=== PATIENT | female | born 1995 | race African-American/Black ===

== ENCOUNTER 2020-04-11 10:21 | Day surgery (SDC) | payer MEDICARE ==
[~2020-04-11] VITALS: Ht 157.5 cm; Wt 163.6 kg
--- NOTE | ~2020-04-11 | OP ---
PATIENT NAME: NATHAN SPRING MEDICAL RECORD: [id number] :94 LOCATION:[facility] ADMISSION DATE: SURGEON: LINDA RODRIGUEZ MD DATE OF OPERATION: 04/11/2020 PROCEDURE: Colonoscopy with ileoscopy and biopsy. REFERRING PHYSICIAN: Dr. Catarino Farooq. INDICATIONS: Ms. Spring is a very pleasant 24-year-old woman who has had symptoms of abdominal pain, change in bowel habits and hematochezia. She is having soft to loose bowel movement twice a day and approximately a month ago, she began intermittently seeing bright red blood and mucus in her stools along with some generalized abdominal pain. She was evaluated in the [place] [facility] on 03/19/2020, she was diagnosed with a UTI and CT of the abdomen and pelvis was concerned for striated nephrogram in the kidneys, which may relate to pyelonephritis, but no significant perinephric stranding to confirm an infectious process; otherwise negative exam. She presents for outpatient colonoscopy. PREMEDICATIONS: Total IV anesthesia (propofol 600 mg). INSTRUMENT: Olympus video colonoscope, pediatric. PROCEDURE AND FINDINGS: After receiving informed consent, Ms. Spring was placed in left lateral decubitus position, sedated as per anesthesia. After achieving an adequate level of sedation, digital rectal exam was performed that showed no external hemorrhoidal tags, fissures or fistulas, normal sphincter tone, no palpable rectal masses. The colonoscope was introduced per rectally and advanced to the cecum without difficulty. The cecum, IC valve, and appendiceal orifice were identified. The terminal ileum was intubated and the distal small bowel mucosa was without erythema or ulcers. Biopsies were taken from the terminal ileum. As the colonoscope was withdrawn, careful inspection was made of the castro of the colon. Overall, the mucosa had normal vascular and fold pattern. The mucosa of the ascending, transverse, and descending colon was normal. Biopsies were taken from the ascending colon to rule out microscopic colitis. There was liquid stool scattered throughout the colon and it was collected for studies. The mucosa of the distal sigmoid colon and into the rectum had a mild cobblestone appearance with a few scattered small aphthous ulcers. Biopsies were taken from the distal sigmoid colon and rectum. Retroflexion in the rectum showed no significant internal hemorrhoids. Ms. Spring tolerated the procedure well, no immediate complications. Withdrawal time was 11 minutes. ASSESSMENT: 1. Mild ulcerative proctosigmoiditis status post biopsy. 2. Normal terminal ileum, status post biopsy and normal mucosa of the ascending, transverse and descending colon, status post ascending colon biopsies. RECOMMENDATIONS: 1. Follow up histopathology. 2. Avoid nonsteroidal anti-inflammatory drugs. 3. Course of Anusol-HC suppositories 1 per rectum b.i.d. to treat proctitis for 14 days, pending results of histopathology. OPERATIVE REPORT [id number] NATHAN SPRING 4. Tentatively plan colonoscopy in 2 years. TRANSINT:[id number] Voice Confirmation ID: [id number] DOCUMENT ID: [id number] LINDA RODRIGUEZ MD CC: CATARINO FAROOQ MD [id number] DICTATION DATE: 04/11/20 1313 ANIMAL HERDER: 04/11/201916 [facility] 04/11/20 [facility] [address] [place] [address]
[2020-04-11 11:24] LABS: HCG SERUM NEGATIVE (NEGATIVE)
[2020-04-11 11:36] LABS: HEMATOCRIT 41.9 % (36.0-48.0); HEMOGLOBIN 13.5 g/dL (12-16); MCH 30.5 pg (26.0-34.0); MCHC 32.2 g/dL (31.0-37.0); MCV 94.6 fL (80.0-100.0); MEAN PLATELET VOLUME 10.6 fL (7.4-10.4); RBC 4.43 10x6/uL (4.00-5.40); WBC 7.1 10x3/uL (4.8-10.8)
[2020-04-11] MEDS ORDERED: OMEPRAZOLE20 M1 PO (11:37)
[2020-04-11] MEDS ORDERED: ATIVAN0.5 MG PO (11:37)
[2020-04-11] MEDS ORDERED: LEXAPRO20 MG PO (11:38)
[2020-04-11 11:54] VITALS: BP 110/77; Ht 157.5 cm; Wt 163.6 kg
--- NOTE | 2020-04-11 13:35 | NUR ---
1330 UP TO THE BATHROOM. AMBULATORY WITHOUT DIFFICULTY. PASSED FLATUS. BACK TO BED. Aravind BRIONES R.N.
--- NOTE | 2020-04-11 14:23 | NUR ---
1354 IV DC'D. CATHETER TIP INTACT. NO BLEEDING AT SITE. BANDAID APPLIED. REVIEWED DISCHARGE INSTRUCTIONS AND PT VOICES UNDERSTANDING OF INSTRUCTIONS.
== END 2020-04-11 14:06 | disposition home or self-care (01) ==
LOC: D.OPS 10:21
PROVIDERS: Anesthesiology; ATTEND Internal Medicine Gastroenterology
DX: R10.9 Unspecified abdominal pain (principal); R19.4 Change in bowel habit; K92.1 Melena